=== PATIENT | male | born 1975 | race Caucasian/White ===

== ENCOUNTER 2016-10-29 11:12 | Emergency (ER) | payer OTHER ==
[2016-10-29] MEDS ORDERED: OXYCODONE-ACETAMINOPHEN 5-325 MG TABLET PO ONE (11:33)
[2016-10-29] MEDS ORDERED: DIPH/PERTUSS(ACELL)/TETANUS VAC/PF 0.5 ML SYR (>=10YO) IM ONE (11:33)
[2016-10-29] MEDS ORDERED: ONDANSETRON 4 MG TAB.RAPDIS PO ONE (11:33)
--- NOTE | 2016-10-29 11:35 | ER Document Report ---
HPI - HPI Patient complains to provider of: left hand injury Onset: Just prior to arrival Onset/Duration: Sudden Quality of pain: Achy Severity: Severe Pain Level: 5 Context: Patient presents emergency department with left hand pain. 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 He complains of left palm pain. Small laceration noted to left palm with very small fatty tissue noted. Patient has full range of motion brisk cap refill. Patient complains of severe pain to the area. Small blood blister noted. Patient is right-hand dominant Associated Symptoms: None Exacerbated by: Denies Relieved by: Denies Similar symptoms previously: No Recently seen / treated by doctor: No - CARDIOVASCULAR Cardiovascular: DENIES: Chest pain - DERM Skin Color: Normal Past Medical History - General Information source: Patient - Social History Smoking Status: Never Smoker Chew tobacco use (# tins/day): No Frequency of alcohol use: None Drug Abuse: None Occupation: [employer] Lives with: Family Family History: Reviewed & Not Pertinent Patient has suicidal ideation: No Patient has homicidal ideation: No Renal/ Medical History: Denies: Hx Peritoneal Dialysis Musculoskeltal Medical History: Reports Hx Arthritis Past Surgical History: Reports: Hx Orthopedic Surgery - Immunizations Hx Diphtheria, Pertussis, Tetanus Vaccination: No - unknown Vertical Provider Document - CONSTITUTIONAL Agree With Documented VS: Yes Exam Limitations: No Limitations - INFECTION CONTROL TRAVEL OUTSIDE OF THE [place] IN LAST 30 DAYS: No - HEENT HEENT: Atraumatic, Normocephalic - NECK Neck: Supple - RESPIRATORY Respiratory: Breath Sounds Normal, No Respiratory Distress O2 Sat by Pulse Oximetry: 99 - CARDIOVASCULAR Cardiovascular: Regular Rate - MUSCULOSKELETAL/EXTREMETIES Musculoskeletal/Extremeties: MAEW, FROM, Tender - left palm ttp, small puncture type wound noted to left mid lateral palm, no active bleeding, no obvious deformity, brisk cap refill - NEURO Level of Consciousness: Awake, Alert, Appropriate - DERM Integumentary: Warm, Dry Course - Re-evaluation Re-evalutation: 10/29/16 12:52 site cleaned well with normal saline and Shur-Clens. X-ray completed Percocet given. Patient instructed on x-ray. Patient instructed on care of steri strips , s/s infection. The wound is very small no need for sutures, Steri-Strip placed. - Vital Signs Vital signs: Temp Pulse Resp BP Pulse Ox 98.3 F 59 L 16 116/67 99 10/29/16 11:10/29/16 11:17 10/29/16 11:17 10/29/16 11:10/29/16 11:17 - Diagnostic Test Radiology reviewed: Image reviewed, Reports reviewed - RAD/ HAND LEFT 3 VIEWS IMPRESSION: NEGATIVE STUDY OF THE LEFT HAND. NO RADIOGRAPHIC EVIDENCE OF ACUTE INJURY Discharge - Discharge Clinical Impression: Injury of left hand Qualifiers: Encounter type: initial encounter Qualified Code(s): S69.92XA - Unspecified injury of left wrist, hand and finger(s), initial encounter Condition: Stable Disposition: HOME, SELF-CARE Instructions: Ice & Elevation ([facility]), Oral Narcotic Medication ([facility]), Care of Steri-Strip Closure ([facility]) Additional Instructions: *You have been treated for left hand injury *Take medication as prescribed- you have received percocet, a narcotic for pain *Monitor the site for signs of infection such as increasing pain, redness, swelling, warmth *Keep the area clean *Follow up with a primary care provider within one week for recheck *Return to ED for signs of infection, worsening condition, changes, needs Prescriptions: Oxycodone HCl/Acetaminophen [Percocet 5-325 mg Tablet] 1 - 2 tab PO ASDIR PRN # 15 tablet PRN Reason: Forms: Return to Work Referrals: DARVIN HENRY MD [Primary Care Provider] - Follow up in 1 week
[2016-10-29 13:44] VITALS: BP 122/72
== END 2016-10-29 13:28 | disposition home or self-care (01) ==
LOC: ER 11:12
DX: S61.432A Puncture wound without foreign body of left hand, initial encounter (principal); S60.521A Blister (nonthermal) of right hand, initial encounter; M79.642 Pain in left hand; W27.8XXA Contact with other nonpowered hand tool, initial encounter; Y93.89 Activity, other specified; Y92.59 Other trade areas as the place of occurrence of the external cause; Y99.0 Civilian activity done for income or pay
CPT/HCPCS: 99283; 90471; 73130; 90715; S0119